=== PATIENT | male | born 1995 | race Caucasian/White ===

== ENCOUNTER 2016-11-08 12:35 | Emergency (ER) | payer OTHER ==
[2016-11-08 13:22] VITALS: BP 135/80
--- NOTE | 2016-11-08 13:57 | Emergency Department Report ---
ED Lower Extremity HPI - General Chief Complaint: Extremity Injury, Lower Stated Complaint: LEFT LEG INJURY X 3WKS Time Seen by Provider: 11/08/16 13:54 Source: patient Mode of arrival: Ambulatory Limitations: No Limitations - History of Present Illness MD Complaint: leg injury -: Sudden Injury: Leg: Left (lower) Type of Injury: other (bball injury 3 w ago) Place: home Severity: mild Severity scale (0 -10): 3 Improves With: nothing Worsens With: nothing Context: fall Associated Symptoms: snap/pop sensation Treatments Prior to Arrival: cold therapy - Related Data Previous Rx's Medication Instructions Recorded Last Taken Type traMADol [Ultram] 50 mg PO Q6HR PRN #12 tablet 11/08/16 Unknown Rx Allergies Allergy/AdvReac Type Severity Reaction Status Date / Time No Known Allergies Allergy Unverified 11/08/16 13:17 ED Review of Systems ROS: Stated complaint: LEFT LEG INJURY X 3WKS Other details as noted in HPI Comment: All other systems reviewed and negative Constitutional: no symptoms reported Eyes: as per HPI ENT: as per HPI Respiratory: no symptoms reported Cardiovascular: as per HPI Endocrine: no symptoms reported Gastrointestinal: as per HPI Genitourinary: as per HPI Musculoskeletal: other (lle pain) Skin: as per HPI Neurological: as per HPI Psychiatric: as per HPI Hematological/Lymphatic: as per HPI ED Past Medical Hx - Past Medical History Previous Medical History?: No - Surgical History Past Surgical History?: No - Social History Smoking Status: Current Every Day Smoker Substance Use Type: None - Medications Home Medications: Home Medications Medication Instructions Recorded Confirmed Last Taken Type traMADol [Ultram] 50 mg PO Q6HR PRN #12 tablet 11/08/16 Unknown Rx ED Physical Exam - General Limitations: No Limitations General appearance: alert, in no apparent distress - Head Head exam: Present: atraumatic - Eye Eye exam: Present: normal appearance - ENT ENT exam: Present: normal exam - Neck Neck exam: Present: normal inspection - Respiratory Respiratory exam: Present: normal lung sounds bilaterally - Cardiovascular Cardiovascular Exam: Present: regular rate - GI/Abdominal GI/Abdominal exam: Present: soft - Rectal Rectal exam: Present: deferred - Extremities Exam Extremities exam: Present: full ROM (ambulatory but w shooting pains), tenderness (lle), normal capillary refill, other (achilles intact). Absent: pedal edema, joint swelling, calf tenderness - Back Exam Back exam: Present: normal inspection - Neurological Exam Neurological exam: Present: alert, altered, oriented X3 - Psychiatric Psychiatric exam: Present: normal affect, normal mood - Skin Skin exam: Present: warm, dry, intact ED Course Vital Signs 11/08/16 13:17 Temperature 98.6 F Pulse Rate 70 Respiratory 18 Rate Blood Pressure 135/80 O2 Sat by Pulse 99 Oximetry ED Lower Extremity MDM - Radiology Data Radiology results: image reviewed interpreted by me: fx - Medical Decision Making 3 w old injury has been ambulating fib fx- non disp, comminu splint, crutches, ortho nv intact achilles intact Critical care attestation.: If time is entered above; I have spent that time in minutes in the direct care of this critically ill patient, excluding procedure time. ED Disposition Clinical Impression: Fibula fracture Disposition: DISCHARGED TO HOME OR SELFCARE Is pt being admited?: No Does the pt Need Aspirin: No Condition: Stable Instructions: Leg Fracture (ED) Additional Instructions: ice rest elevate splint crutches ortho follow up motrin over the counter 800 mg with food every 9 hours for mild to moderate pain ultram for severe pain Prescriptions: traMADol [Ultram] 50 mg PO Q6HR PRN #12 tablet PRN Reason: Pain Referrals: PRIMARY CARE, [Primary Care Provider] - 3-5 Days NIMISHA MENDEZ MD [Staff Physician] - 3-5 Days Time of Disposition: 14:53
--- NOTE | 2016-11-08 14:56 | XRay Report ---
Left tibia/fibula: Pain. There is a transverse somewhat irregular shaped fracture through the midshaft of the fibula. No separation no offset. The bones are well-mineralized. No other findings. Impression: Midshaft fibula fracture.
== END 2016-11-08 15:36 | disposition home or self-care (01) ==
LOC: ED 12:35
DX: S82.455A Nondisplaced comminuted fracture of shaft of left fibula, initial encounter for closed fracture (principal); F17.200 Nicotine dependence, unspecified, uncomplicated; W19.XXXA Unspecified fall, initial encounter; Y93.9 Activity, unspecified; Y99.9 Unspecified external cause status; Y92.009 Unspecified place in unspecified non-institutional (private) residence as the place of occurrence of the external cause